=== PATIENT | male | born 1960 | race Caucasian/White ===

== ENCOUNTER → 2018-10-31 | Outpatient (CLI) | payer OTHER | END | disposition home or self-care (01) | LOC: PLD 09:43 → LAB SHORT 09:43 | DX: D22.61 Melanocytic nevi of right upper limb, including shoulder (principal); D03.59 Melanoma in situ of other part of trunk | CPT/HCPCS: 88305 ==

== ENCOUNTER → 2018-11-23 | Outpatient (CLI) | payer OTHER | END | disposition home or self-care (01) | LOC: PLD 08:33 → LAB SHORT 08:33 | DX: D03.59 Melanoma in situ of other part of trunk (principal); Z98.890 Other specified postprocedural states | CPT/HCPCS: 88305 ==

== ENCOUNTER → 2019-08-31 | Outpatient (CLI) | payer OTHER ==
[2019-08-31 14:01] LABS: Free Thyroxine 0.51 ng/dL (0.70-1.60)
[2019-08-31 14:06] LABS: Thyroid Stimulating Hormone 47.8 uIU/mL (0.360-4.800)
== END ==
LOC: LAB SHORT 13:00 → LAB 13:00
PROVIDERS: Hospitalist
DX: E03.9 Hypothyroidism, unspecified (principal)
CPT/HCPCS: 84439; 84443

== ENCOUNTER 2021-06-17 07:37 | Day surgery (SDC) | payer OTHER ==
[~2021-06-17] VITALS: Ht 180.3 cm; Wt 96.8 kg
[~2021-06-17 07:37] MED LIST: ALBU90OI INH; DEPO-TESTO200 MG/1 M IM; LEVSOD150 PO; Nexium40 MG PO; SERT50 PO
== END 2021-06-17 10:19 | disposition home or self-care (01) ==
LOC: ORSCSDS 07:37
PROVIDERS: Internal Medicine Gastroenterology
PROC: 0DJD8ZZ Inspection of Lower Intestinal Tract, Via Natural or Artificial Opening Endoscopic (ICD-10-PCS; principal; 2021-06-17 09:00)
DX: Z12.11 Encounter for screening for malignant neoplasm of colon (principal); K57.30 Diverticulosis of large intestine without perforation or abscess without bleeding; Z79.899 Other long term (current) drug therapy
CPT/HCPCS: J2704; J7120